=== PATIENT | female | born 1985 | race Caucasian/White ===

== ENCOUNTER 2023-08-17 09:10 | Emergency (ER) | payer OTHER, MEDICAID, SELFPAY ==
[2023-08-17 09:23] VITALS: BP 133/80; PULSE 99; RESP 16; TEMP 36.4; O2SAT 98; BMI 25.7
[2023-08-17 11:24] VITALS: BP 131/74; PULSE 96; RESP 16; O2SAT 99
--- NOTE | 2023-08-17 11:54 | ED.GENADULT ---
HPI - General Adult General Chief complaint: Ear Stated complaint: Hearing loss in R/ear Time Seen by Provider: 08/17/23 11:46 History of Present Illness HPI narrative: 37-year-old at 35 weeks presents with acute hearing loss in her right ear. She notes that she has not recently been sick, no seasonal allergies no postnasal drip no fevers or cough. She describes no headaches. States that last night at 9:00 p.m. she noticed that the hearing was significantly diminished in the right ear and when she woke this morning she had some mild tinnitus and hearing still had not returned. She is not complaining of symptoms left ear. Review of Systems Review of Systems Narrative: Pertinent positive and negative findings as per HPI Exam Initial Vital Signs Initial Vital Signs: Vital Signs Temperature 97.6 F 08/17/23 09:23 Pulse Rate 99 H 08/17/23 09:23 Respiratory Rate 16 08/17/23 09:23 Blood Pressure 133/80 08/17/23 09:23 Pulse Oximetry 98 08/17/23 09:23 Oxygen Delivery Method Room Air 08/17/23 09:23 General: Alert appropriate in no acute distress ENT: Right tympanic membrane somewhat retracted and dull, left ear is unremarkable. No cervical adenopathy, no posterior pharyngeal erythema no nasal discharge. Respiratory: Able to speak in full sentences, no obvious respiratory distress Skin: No obvious rashes, warm and dry Neurologic: Grossly intact no obvious asymmetries or abnormalities Psych: appropriate insight and affect, cooperative Course Vital Signs Vital signs: Vital Signs - 8 hr 08/17/23 09:23 08/17/23 11:24 Temperature 97.6 F Pulse Rate 99 H 96 H Respiratory Rate 16 16 Blood Pressure 133/80 131/74 Pulse Oximetry 98 99 Oxygen Delivery Method Room Air Room Air Medical Decision Making [facility] Narrative Medical decision making narrative: CC: Acute hearing loss right ear Complicating co-morbidities: 35 weeks Data collected from: patient, Differential considered: Otitis media, cerumen impaction, acoustic neuroma Exam documented above, pertinent findings include: Serous effusion with retracted right tympanic membrane Discussion: Discussion regarding effusions. At this point there is no indication for antibiotics. Did recommend Afrin as a safe alternative to Sudafed to use in late . If symptoms are not responding then follow up with her primary care doctor and possible ENT referral will be the next step in the workup and this is reviewed with her. Questions are answered and she is safe for discharge Discharge Plan Departure Patient Disposition: Home Clinical Impression: Acute serous otitis media of right ear Qualifiers: Recurrence: non-recurrent Qualified Code(s): H65.01 - Acute serous otitis media, right ear Instructions: DI for Hearing Loss Activity Restrictions/Additional Instructions: Thank you for coming in today The right ear has fluid in the middle ear that is causing the eardrum to be pulled back. This is why your hearing is diminished. This is not an infection and does not need antibiotics. I would recommend using Afrin nose spray over the next couple of days to see if reducing some of the swelling in the back of your throat encourage is your Eustachian tube to open up and allows that your to drain. If your symptoms are not improving, the next follow-up would be with your primary care doctor and then likely an ear nose and throat physician. At this time, I am not concerned with a stroke, mass, tumor or other frightening diagnosis. If you find that you are getting worse or develop any new symptoms, please feel free to return to the emergency department for further evaluation. Referrals: Miscellaneous,Doctor, [Primary Care Provider] - Stand Alone Forms: Patient Portal/API
[2023-08-17 12:00] VITALS: BP 117/77
--- NOTE | 2023-08-17 12:17 | PC.NURSE ---
Seen and assessed by MD without RN involvement
== END 2023-08-17 12:18 | disposition home or self-care (01) ==
PROVIDERS: Emergency Provider Emergency Medicine
DX: H65.01 Acute serous otitis media, right ear (principal)
CPT/HCPCS: 99281

== ENCOUNTER → 2023-12-15 14:15 | Outpatient (CLI) | payer OTHER, MEDICAID, SELFPAY ==
[2023-12-15 15:47] LABS: Free T4, Direct Thyroxine 1.19 ng/dL (0.78-2.19)
[2023-12-15 16:01] LABS: Thyroid Stimulating Hormone 0.252 uIU/mL (0.47-4.68)
== END ==
PROVIDERS: Referring Provider Nurse Practitioner Obstetrics & Gynecology; Visit Provider Nurse Practitioner Obstetrics & Gynecology
DX: E03.9 Hypothyroidism, unspecified (principal)
CPT/HCPCS: 36415; 84439; 84443

== ENCOUNTER → 2024-09-16 10:16 | Outpatient (CLI) | payer OTHER, MEDICAID, SELFPAY ==
--- NOTE | 2024-09-16 10:18 | DI.RAD.S_ITS ---
PROCEDURE: XR HIP W PEL IF DONE LINA MIN 4V INDICATIONS: bilateral hip pain TECHNIQUE: AP pelvis with lateral view(s) of the both hips hip(s). COMPARISON: None. FINDINGS: Bones: CAM configuration both femoral head neck junctions would predispose to femoral acetabular impingement and labral tear. No other osseous abnormality. SI and hip joints: Normal in width and alignment without arthritic change Soft tissues: No soft tissue swelling, calcification or mass. IMPRESSION: CAM configuration of both femoral head neck junctions predisposing to femoral acetabular impingement and labral tear Dictated by: Soham Odell M.D. on 09/17/2024 at 9:05 Approved by: Soham Odell M.D. on 09/17/2024 at 9:07
== END ==
PROVIDERS: PCP Nurse Practitioner Family; Referring Provider Nurse Practitioner Family; Visit Provider Nurse Practitioner Family
DX: M25.551 Pain in right hip (principal); M25.552 Pain in left hip
CPT/HCPCS: 73522

== ENCOUNTER → 2024-11-11 15:42 | Outpatient (CLI) | payer OTHER, MEDICAID, SELFPAY ==
--- NOTE | 2024-11-11 15:45 | DI.CT.S_ITS ---
PROCEDURE: CT CHEST WO CON INDICATIONS: Follow up 8 mm subsolid nodule discovered in 2019 TECHNIQUE: Noncontrast 5 mm thick sections acquired from the pulmonary apices to the posterior costophrenic angles. 1 mm lung window, 5 mm thick coronal and sagittal and 7 mm axial MIP reformats were then acquired. For radiation dose reduction, the following was used: automated exposure control, adjustment of mA and/or kV according to patient size. COMPARISON: Outside Facility, CT, CT CHEST WO CON, 09/04/2020, 11:02. FINDINGS: Image quality: Diagnostic. Lower Neck: No enlarged lymph nodes. Thyroid: No thyroid nodules which require sonographic follow up, per consensus guidelines. Axillae: No enlarged lymph nodes. Chest Wall: Unremarkable. Bones: Unremarkable. Lungs and Pleura: No pneumothorax or pleural effusions. Biapical scarring. Stable 9 x 6 mm part solid nodule in the left upper lobe. The solid component measures 3 x 4 mm. Heart: Heart size is normal. No pericardial effusion. Thoracic Vessels: The aorta and pulmonary arteries demonstrate normal size. Mediastinum and Ladi: No enlarged lymph nodes. Esophagus: No wall thickening. No hiatal hernia. Upper Abdomen: Visualized upper abdomen solid organs and bowel loops appear normal. IMPRESSION: Stable 9 x 6 mm part solid nodule in the left upper lobe. Given stability since 2019, findings favor a benign etiology. Dictated by: Saad Russ M.D. on 11/17/2024 at 11:06 Approved by: Saad Russ M.D. on 11/17/2024 at 11:10
== END ==
PROVIDERS: PCP Nurse Practitioner Family; Referring Provider Internal Medicine; Visit Provider Internal Medicine
DX: R91.1 Solitary pulmonary nodule (principal)
CPT/HCPCS: 71250

== ENCOUNTER → 2025-08-25 15:24 | Outpatient (CLI) | payer OTHER, SELFPAY ==
[2025-08-25 16:16] LABS: Influenza A - CEPHEID Flu A NEGATIVE (NEGATIVE); Influenza B - CEPHEID Flu B NEGATIVE (NEGATIVE)
[2025-08-25 16:26] LABS: COVID-19 CEPHEID 4-PLEX PCR Negative (Negative)
== END ==
PROVIDERS: PCP Nurse Practitioner Family; Visit Provider Nurse Practitioner Family
DX: R05.9 Cough, unspecified (principal)
CPT/HCPCS: 87637